=== PATIENT | female | born 1975 | race Hispanic/Latino ===

== ENCOUNTER 2017-05-27 12:43 | Emergency (ER) | payer SELFPAY | END 2017-05-27 13:52 | disposition left against medical advice (07) | LOC: EDH 12:43 | DX: J02.9 Acute pharyngitis, unspecified (principal); Z53.21 Procedure and treatment not carried out due to patient leaving prior to being seen by health care provider ==

== ENCOUNTER 2024-05-20 23:30 | Emergency (ER) | payer BC ==
[~2024-05-20] VITALS: Ht 157.5 cm; Wt 83.0 kg
[2024-05-21 00:04] LABS: RAPID GROUP A STREP negative (NEGATIVE)
[2024-05-21 00:10] LABS: SARS-CoV-2, RNA, NAAT NEGATIVE SARS CoV-2 (NEGATIVE)
[2024-05-21 00:13] LABS: INFLUENZA TYPE A Negative For Type A (NEGATIVE); INFLUENZA TYPE B Negative For Type B (NEGATIVE)
--- NOTE | 2024-05-21 01:27 | ERN ---
ED Note History of Present Illness Stated Complaint: C/O COUGH W/PHLEGM,SORE THROAT, CONGESTION Chief Complaint: Cough Time Seen by MD: 23:32 Time Seen by Midlevel: 23:32 Dictation: The patient is a 48-year-old female with no past medical history who presents to the emergency department with complaints of clear productive cough, sore throat, bilateral ear pain onset two weeks ago. Patient denies any fevers. . Allergies: Coded Allergies: No Known Allergies (Unverified Allergy, Unknown, 05/20/24) Past Medical History Past Medical History: Diabetes-Type II Surgical History: None LMP: Apr 18, 2024 RN Note Reviewed/Agreed w/PFSH: Yes Review of System Dictation Constitutional: Negative for fever,chills, and weight loss Eyes: Negative for injury, pain,redness, and discharge ENT: Negative for injury,pain or swelling positive for sore throat, ear pain Cardiovascular: Negative for chest pain, palpitations, and edema Respiratory: Negative for shortness of breath and wheezing, positive for cough Abdomen/GI: Negative for abdominal pain, nausea, vomiting, diarrhea, and constipation Back: Negative for injury and pain : Negative for injury, bleeding and discharge MS/Extremity: Negative for injury and deformity Skin: Negative for rash, and discoloration Neuro: Negative for headache, weakness, numbness, tingling, and seizure Psych: Negative for suicide ideation, homicidal ideation, and hallucinations Initial Vital Sign VS Vital Signs Date Time Temp Pulse Resp B/P (MAP) Pulse Ox O2 Delivery O2 Flow Rate FiO2 05/20/24 23:34 97.2 62 20 102/67 97 Room Air Physical Exam Dictation Vital Signs reviewed General Appearance: Alert, oriented x 3, no acute distress, well developed, nourished. Head and Face: non-traumatic. Eyes: PERRL, pink conjunctivas, eyelid no trauma, anterior chamber with arcus senilis. Ears: Pinnas intact and no signs of trauma or erythema ear canals clear and no discharge TM no erythema Nose: No discharge, no bleeding. Oropharynx: Mouth normal, tongue pink. pharynx clear,no erythema, tonsils no exudates, no abscesses noted, mucous membrane moist Neck: Supple, non-tender, no thyromegaly, no masses, no JVD, no bruits Breast:Deferred Chest:No tenderness, no crepitus, no paradoxical movement, no retractions Lungs:Clear, well-ventilated, symmetric, no rales mild wheezing, no rhonchi, no stridor, good breath sounds bilaterally Heart: Regular rate, regular rhythm, no murmur, no gallops Vascular: no peripheral edema, Abdomen: Soft, positive bowel sounds, nondistended, no guarding, nontender, no rebound, no masses no hepatomegaly, no splenomegaly, no Hudson's sign, no hernias. Rectal: Deferred Genital: Deferred Neurological: Normal speech, motor function intact, sensory function intact Musculoskeletal: Neck nontender, full range of motion, back nontender, full range of motion, Extremities: nontender, full range of motion Skin: Color pink, dry, no turgor, no rash, no lacerations, no abrasions, no contusions. Lymphatic: Deferred Results (Laboratory/Radiology) Laboratory/Radiology Laboratory Tests Test 05/20/24 23:42 05/21/24 01:30 Influenza Type A Antigen Negative For Type A Influenza Type B Antigen Negative For Type B SARS-CoV-2, RNA, NAAT NEGATIVE SARS CoV-2 Group A Streptococcus Rapid negative (NEGATIVE) Urine HCG, Qualitative NEGATIVE (NEGATIVE) Labs Reviewed?: Yes ED Course ED Course Orders Procedure Category Date Status Time Covid Rna Naat LAB 05/20/24 Complete 23:32 Influenza Type A & B, LAB 05/20/24 Complete Rapid 23:32 Rapid (Group A Strep) LAB 05/20/24 Complete 23:32 Chest 1vw RAD 05/20/24 Taken 23:45 Ipratropium/Albuterol PHA 05/21/24 Complete Neb (Duoneb) 00:00 Guaifenesin-Dm PHA 05/21/24 Complete 200/20mg 10ml 00:00 Methylprednisolone PHA 05/21/24 Complete Succ 125mg (Solu-Medr 00:00 ,Urine Test LAB 05/21/24 Complete 01:22 Current Medications Medications (Trade) Dose Ordered Sig/Danny Route PRN Reason Start Time Stop Time Status Last Admin Dose Admin Albuterol (DUOneb) 1 UDVIAL ONCE ONCE IH 05/21/24 00:00 05/21/24 00:01 DC 05/21/24 01:38 Guaifenesin/ Dextromethorphan (RobiTUSSin DM 200/20MG 10ML) 10 ml ONCE ONCE PO 05/21/24 00:00 05/21/24 00:01 DC 05/21/24 02:41 Methylprednisolone Sodium Succinate (Solu-medROL 125MG) 125 mg ONCE ONCE IM 05/21/24 00:00 05/21/24 00:01 DC 05/21/24 02:41 Vital Signs Date Time Temp Pulse Resp B/P (MAP) Pulse Ox O2 Delivery O2 Flow Rate FiO2 05/21/24 01:38 61 18 05/20/24 23:34 97.2 62 20 102/67 97 Room Air Medical Decision Making MDM The patient is a 48-year-old female with no past medical history who presents to the emergency department with complaints of clear productive cough, sore throat, bilateral ear pain onset two weeks ago. Patient denies any fevers. Serology negative. Chest x-ray showed no acute pulmonary pathology. Patient received nebulizer treatment and wheezing improved. Patient continues in no acute distress. Nonlabored respirations. O2 sats 98% on room air. Will be discharged to follow up with PCP. Differential diagnosis: Upper respiratory infection, pneumonia, COVID-19 infection Need for hospitalization: Patient does not meet criteria for hospitalization. There are no social concerns with this patient. DX & DISP Disposition: Discharge Departure Impression: Primary Impression: Upper respiratory infection Additional Impression: Cough Condition: Stable Scripts Methylprednisolone (Medrol) 4 Mg Tab.ds.pk 4 MG PO AD for 6 Days, #1 PACK Day 1: Take 2 tablets before breakfast,1 tablet after lunch and supper, and 2 tablets at bedtime. Day 2: Take1 tablet before breakfast,1 tablet after lunch,1 tablet after supper, and 2 tablets at bedtime. Day 3: Take 1 tablet before breakfast, 1 tablet after lunch, 1 tablet after supper, and 1 tablet at bedtime. Day 4: Take 1 tablet before breakfast, 1 tablet after lunch, and 1 tablet at bedtime. Day 5: Take1 tablet before breakfast and 1 tablet at bedtime. Day 6: Take 1 tablet before breakfast. Prov: NAYAN SORENSEN 05/21/24 Loratadine (Loratadine) 10 Mg Tablet 1 TAB PO DAILY for allergy symptoms for 30 Days, #30 TAB 0 Refills Prov: NAYAN SORENSEN 05/21/24 Albuterol Sulfate (Ventolin Hfa/Proventil Hfa/Proair Hfa) 90 Mcg Puff 1-2 PUFF IH Q4H PRN for SHORTNESS OF BREATH for 5 Days, #1 INH 0 Refills PHARMACY TO DISPENSE 1 INHALER FOR USE Prov: NAYAN SORENSEN 05/21/24 Additional Instructions: Please follow up with your PCP in 1-2 days. If symptoms worsen please return to ER. FOLLOW-UP WITH PRIMARY CARE PROVIDER IN 1 TO 2 DAYS. TAKE MEDICATIONS DIRECTED HERE IN THE EMERGENCY ROOM. OKAY TO CONTINUE HOME MEDICATIONS UNLESS OTHERWISE DISCUSSED DURING YOUR VISIT IN THE EMERGENCY ROOM TODAY. RETURN TO YOUR NEAREST EMERGENCY ROOM IF SYMPTOMS WORSEN OR IF THERE IS NO IMPROVEMENT. CALL 911 IF YOU NEED IMMEDIATE ASSISTANCE. TAKE TYLENOL OR MOTRIN [id number] NEEDED AND IF NO CONTRAINDICATIONS ARE PRESENT. INCREASE ORAL HYDRATION. A WOUND CULTURE OR URINE CULTURE WAS ORDERED HERE IN THE EMERGENCY ROOM DEPARTMENT PLEASE FOLLOW-UP WITH PRIMARY CARE PROVIDER AND ADVISE THEM TO GET REPEAT PORTS FROM OUR FACILITY. IF YOU HAD ANY ISABEL WRAP/SPLINTS THAT WERE APPLIED HERE, PLEASE DO NOT REMOVE THEM UNTIL YOU SEE YOUR PRIMARY CARE OR SPECIALTY. Referrals: SELF,REFERRAL (PCP) Time of Disposition: 02:43 I have reviewed the case, and I agree with, Diagnosis and Plan NAYAN SORENSEN May 21, 2024 01:27
[2024-05-21 01:38] VITALS: PULSE 61; RESP 18
[2024-05-21] MEDS: IpraTROPium/alBUTERol SULFATE 3 ML SOLUTION IH ONE (01:38)
--- NOTE | 2024-05-21 02:25 | NUR ---
ASSUMED PT CARE
[2024-05-21] MEDS: guaiFENesin-DM 200/20MG 10ML PO ONE (02:41)
[2024-05-21] MEDS: Solu-medROL 125MG VIAL IM ONE (02:41)
[2024-05-21] MEDS ORDERED: METH4TAB3 PO (02:46)
[2024-05-21] MEDS ORDERED: ALBUHFA IH (02:46)
[2024-05-21] MEDS ORDERED: LORA10TA7 PO (02:46)
[2024-05-21 02:56] VITALS: BP 102/67; PULSE 68; RESP 18; TEMP 98.4; O2SAT 99
--- NOTE | 2024-05-21 08:48 | HMCIMG ---
CHEST 1VW REASON: sob COMPARISON: None. FINDINGS: Single view of the chest was obtained. Lungs are clear. Heart size is normal. There is no pulmonary vascular congestion. Mediastinum and bony thorax appear unremarkable. IMPRESSION: 1. Normal single view chest x-ray.
== END 2024-05-21 03:01 | disposition home or self-care (01) ==
LOC: EDH 23:30
DX: J06.9 Acute upper respiratory infection, unspecified (principal); E11.9 Type 2 diabetes mellitus without complications; Z20.822 Contact with and (suspected) exposure to COVID-19
CPT/HCPCS: 99284; 71045; 87635; 87880; 87804 ×2; 81025; 96372; 94640; J2919

== ENCOUNTER 2024-06-19 12:14 | Emergency (ER) | payer BC ==
[~2024-06-19] VITALS: Ht 154.9 cm; Wt 77.1 kg
[~2024-06-19 12:14] MED LIST: ALBUHFA IH; LORA10TA7 PO; METH4TAB3 PO
--- NOTE | 2024-06-19 12:23 | ERN ---
ED Note History of Present Illness Stated Complaint: COUGH,CONGESTION,EAR ACHE,SOB Chief Complaint: Cough Time Seen by MD: 12:15 Dictation: PATIENT IS A 48-YEAR-OLD FEMALE COMING IN TODAY WITH FLU-LIKE SYMPTOMS TO INCLUDE CLEAR RUNNY NOSE, MILD SORE THROAT WITH PAINFUL SWALLOWING DRY COUGH AND FRONTAL HEADACHE FOR THREE DAYS. SHE DENIES NAUSEA VOMITING NO LOSS OF TASTE OR SMELL. SHE ALSO STATES SHE HAS GOT RIGHT EAR PAIN SHE HAS HAD IT FOR THE SAME AMOUNT OF TIME, STATES SHE CALLED HER TO A DOCTOR TODAY WHO SAID SHE COULD NOT GET IN UNTIL TOMORROW. WHEN I ASKED HER IF SHE WAS GOING TO GO SEE YOUR DOCTOR TOMORROW SHE SAID I DO NOT HAVE A CAR. Allergies: Coded Allergies: No Known Allergies (Unverified Allergy, Unknown, 05/20/24) Home Meds Active Scripts Albuterol Sulfate (Ventolin Hfa/Proventil Hfa/Proair Hfa) 90 Mcg Puff, 2 PUFF IH Q4H for WHEEZING, #1 INHALER 0 Refills Prov:VINNY GAONA SHOT PEENING OPERATOR 06/19/24 Benzonatate (Tessalon Perles) 100 Mg Cap, 200 MG PO TID for cough, #60 CAP 0 Refills Prov:VINNY GAONA SHOT PEENING OPERATOR 06/19/24 Methylprednisolone (Medrol) 4 Mg Tab.ds.pk, 1 TAB PO AD for 6 Days, #21 TAB 0 Refills 6 on day 1 then reduce by one tablet daily until gone Prov:VINNY GAONA SHOT PEENING OPERATOR 06/19/24 Methylprednisolone (Medrol) 4 Mg Tab.ds.pk, 4 MG PO AD for 6 Days, #1 PACK Day 1: Take 2 tablets before breakfast,1 tablet after lunch and supper, and 2 tablets at bedtime. Day 2: Take1 tablet before breakfast,1 tablet after lunch,1 tablet after supper, and 2 tablets at bedtime. Day 3: Take 1 tablet before breakfast, 1 tablet after lunch, 1 tablet after supper, and 1 tablet at bedtime. Day 4: Take 1 tablet before breakfast, 1 tablet after lunch, and 1 tablet at bedtime. Day 5: Take1 tablet before breakfast and 1 tablet at bedtime. Day 6: Take 1 tablet before breakfast. Prov:NAYAN SORENSEN 05/21/24 Loratadine (Loratadine) 10 Mg Tablet, 1 TAB PO DAILY for allergy symptoms for 30 Days, #30 TAB 0 Refills Prov:NAYAN SORENSEN ADVANCED PRACTICE PSYCHIATRIC NURSE 05/21/24 Albuterol Sulfate (Ventolin Hfa/Proventil Hfa/Proair Hfa) 90 Mcg Puff, 1-2 PUFF IH Q4H PRN for SHORTNESS OF BREATH for 5 Days, #1 INH 0 Refills PHARMACY TO DISPENSE 1 INHALER FOR USE Prov:NAYAN SORENSEN ADVANCED PRACTICE PSYCHIATRIC NURSE 05/21/24 Past Medical History Past Medical History: Diabetes-Type II Surgical History: None History: Not Applicable RN Note Reviewed/Agreed w/PFSH: Yes Review of System Dictation CONSTITUTIONAL: NEGATIVE EXCEPT FOR HPI FEVER CHILLS HEAD/FACE: NEGATIVE EXCEPT FOR HPI EENT: NEGATIVE EXCEPT FOR HPI CLEAR RHINITIS WITH RIGHT EAR PAIN, SORE THROAT RESPIRATORY: NEGATIVE EXCEPT FOR HPI DRY COUGH GASTROINTESTINAL/ABDOMINAL: NEGATIVE EXCEPT FOR HPI GENITOURINARY: NEGATIVE EXCEPT FOR HPI MUSCULOSKELETAL: NEGATIVE EXCEPT FOR HPI INTEGUMENTARY: NEGATIVE EXCEPT FOR HPI NEUROLOGICAL/PSYCH: NEGATIVE EXCEPT FOR HPI HEMATOLOGIC/LYMPHATIC: NEGATIVE EXCEPT FOR HPI ALL SYSTEMS NEGATIVE, EXCEPT NOTED ABOVE. 13 POINT REVIEW OF SYSTEMS ASSESSED AND ALL NEGATIVE EXCEPT FOR ABOVE. Initial Vital Sign VS Vital Signs Date Time Temp Pulse Resp B/P (MAP) Pulse Ox O2 Delivery O2 Flow Rate FiO2 06/19/24 12:21 101.1 99 18 142/71 95 Room Air 06/19/24 13:14 0 21 Physical Exam Dictation VITAL SIGNS REVIEWED GENERAL APPEARANCE: ALERT, ORIENTED X 3, MILD ACUTE DISTRESS, WELL DEVELOPED, NOURISHED. HEAD AND FACE: NON-TRAUMATIC. EYES: PERRL, PINK CONJUNCTIVAS, EYELID NO TRAUMA, ANTERIOR CHAMBER WITH ARCUS SENILIS. EARS: PINNAS INTACT AND NO SIGNS OF TRAUMA MILD RIGHT OTIC CANAL ERYTHEMA TENDERNESS NO DISCHARGE. TM INTACT BILATERAL NOSE: CLEAR DISCHARGE, NO BLEEDING. OROPHARYNX: MOUTH NORMAL, TONGUE PINK, PHARYNX CLEAR, MODERATE PHARYNGEAL ERYTHEMA, TONSILS NO EXUDATES, NO ABSCESSES NOTED, MUCOUS MEMBRANE MOIST UVULA MIDLINE, VOICE IS CLEAR NECK: SUPPLE, NON-TENDER, NO THYROMEGALY, NO MASSES, NO JVD, NO BRUITS BREAST:DEFERRED CHEST:NO TENDERNESS, NO CREPITUS, NO PARADOXICAL MOVEMENT, NO RETRACTIONS LUNGS:CLEAR, WELL-VENTILATED, SYMMETRIC, NO RALES, NO WHEEZING, NO RHONCHI, NO STRIDOR, GOOD BREATH SOUNDS BILATERALLY NO TACHYPNEA OR RETRACTIONS. DRY COUGH NOTED HEART: REGULAR RATE, REGULAR RHYTHM, NO MURMUR, NO GALLOPS VASCULAR: NO PERIPHERAL EDEMA, ABDOMEN: SOFT, POSITIVE BOWEL SOUNDS, NONDISTENDED, NO GUARDING, NONTENDER, NO REBOUND, NO MASSES NO HEPATOMEGALY, NO SPLENOMEGALY, NO MARTINEZ'S SIGN, NO HERNIAS. RECTAL: DEFERRED GENITAL: DEFERRED NEUROLOGICAL: NORMAL SPEECH, MOTOR FUNCTION INTACT, SENSORY FUNCTION INTACT MUSCULOSKELETAL: NECK NONTENDER, FULL RANGE OF MOTION, BACK NONTENDER, FULL RANGE OF MOTION, EXTREMITIES: NONTENDER, FULL RANGE OF MOTION SKIN: COLOR PINK, DRY, NO TURGOR, NO RASH, NO LACERATIONS, NO ABRASIONS, NO CONTUSIONS. LYMPHATIC: DEFERRED Results (Laboratory/Radiology) Laboratory/Radiology Laboratory Tests Test 06/19/24 12:23 06/19/24 12:35 Influenza Type A Antigen Negative For Type A Influenza Type B Antigen Negative For Type B SARS-CoV-2 Antigen (Rapid) PRESUMPTIVE NEGATIVE Group A Streptococcus Rapid negative (NEGATIVE) Labs Reviewed?: Yes ED Course ED Course Orders Procedure Category Date Status Time Covid19 (Sars Antigen LAB 06/19/24 Complete Rapid) 12:19 Influenza Type A & B, LAB 06/19/24 Complete Rapid 12:19 Acetaminophen 500mg PHA 06/19/24 Complete Tab (Tylenol 500mg T 12:30 Dexamethasone 4mg/Ml PHA 06/19/24 Complete 1ml Vial (Dexametha 12:30 Rapid (Group A Strep) LAB 06/19/24 Complete 12:30 Current Medications Medications (Trade) Dose Ordered Sig/Danny Route PRN Reason Start Time Stop Time Status Last Admin Dose Admin Acetaminophen (TYLenol 500MG TAB) 1,000 mg ONCE ONCE PO 06/19/24 12:30 06/19/24 12:31 DC 06/19/24 13:19 Dexamethasone Sodium Phosphate (dexaMETHasone 4MG/ML 1ML VIAL) 8 mg ONCE ONCE IM 06/19/24 12:30 06/19/24 12:31 DC 06/19/24 13:19 Vital Signs Date Time Temp Pulse Resp B/P (MAP) Pulse Ox O2 Delivery O2 Flow Rate FiO2 06/19/24 13:19 100.8 06/19/24 13:14 100.8 95 16 140/70 98 Room Air* 0 21 06/19/24 12:21 101.1 99 18 142/71 95 Room Air 1307/WORKUP IS NEGATIVE PATIENT STATES SHE FEELS BETTER AFTER TREATMENT. SHE WILL BE DISCHARGED HOME TO FOLLOW UP WITH HER PRIMARY CARE DOCTOR TOMORROW SHE WILL BE TREATED SYMPTOMATICALLY FOR VIRAL URI WITH COUGH AND FEVER. Medical Decision Making MDM MEDICAL DISCHARGE MAKING BASED ON SWABS FOR FLU COVID AND STREP. PATIENT GIVEN DECADRON8 MG FOR PERSISTENT COUGH. SHE WILL BE DISCHARGED HOME WITH MEDROL DOSEPAK, TESSALON, ALBUTEROL INHALER TOLD SEE HER PRIMARY CARE DOCTOR AT [facility] FOR FOLLOW UP DX & DISP Disposition: Discharge Departure Impression: Primary Impression: Viral URI with cough Additional Impression: Fever Condition: Stable Scripts Albuterol Sulfate (Ventolin Hfa/Proventil Hfa/Proair Hfa) 90 Mcg Puff 2 PUFF IH Q4H for WHEEZING, #1 INHALER 0 Refills Prov: VINNY GAONA NP 06/19/24 Benzonatate (Tessalon Perles) 100 Mg Cap 200 MG PO TID for cough, #60 CAP 0 Refills Prov: VINNY GAONA NP 06/19/24 Methylprednisolone (Medrol) 4 Mg Tab.ds.pk 1 TAB PO AD for 6 Days, #21 TAB 0 Refills 6 on day 1 then reduce by one tablet daily until gone Prov: VINNY GAONA NP 06/19/24 Additional Instructions: FOLLOW-UP WITH PRIMARY CARE PROVIDER IN 1 TO 2 DAYS. TAKE MEDICATIONS DIRECTED HERE IN THE EMERGENCY ROOM. OKAY TO CONTINUE HOME MEDICATIONS UNLESS OTHERWISE DISCUSSED DURING YOUR VISIT IN THE EMERGENCY ROOM TODAY. RETURN TO YOUR NEAREST EMERGENCY ROOM IF SYMPTOMS WORSEN OR IF THERE IS NO IMPROVEMENT. CALL 911 IF YOU NEED IMMEDIATE ASSISTANCE. TAKE TYLENOL OR MOTRIN [id number] NEEDED AND IF NO CONTRAINDICATIONS ARE PRESENT. INCREASE ORAL HYDRATION. A WOUND CULTURE OR URINE CULTURE WAS ORDERED HERE IN THE EMERGENCY ROOM DEPARTMENT PLEASE FOLLOW-UP WITH PRIMARY CARE PROVIDER AND ADVISE THEM TO GET REPEAT PORTS FROM OUR FACILITY. IF YOU HAD ANY ISABEL WRAP/SPLINTS THAT WERE APPLIED HERE, PLEASE DO NOT REMOVE THEM UNTIL YOU SEE YOUR PRIMARY CARE OR SPECIALTY. INCREASE YOUR FLUID INTAKE. TAKE MEDROL DOSEPAK DIRECTED UNTIL GONE. TAKE TESSALON PERLES EVERY 8 HOURS NEEDED FOR COUGH. SEE YOUR PRIMARY CARE DOCTOR FOR FOLLOW UP AND MANAGE Referrals: SELF,REFERRAL (PCP) Time of Disposition: 13:10 I have reviewed the case, and I agree with, Diagnosis and Plan VINNY GAONA NP Jun 19, 2024 12:23 PATRICIO CACERES DO Jun 19, 2024 14:55
[2024-06-19 12:50] LABS: COVID19 (SARS ANTIGEN RAPID) PRESUMPTIVE NEGATIVE (NEGATIVE); INFLUENZA TYPE A Negative For Type A (NEGATIVE); INFLUENZA TYPE B Negative For Type B (NEGATIVE)
[2024-06-19] MEDS ORDERED: ALBUHFA IH (13:11)
[2024-06-19] MEDS ORDERED: METH4TAB3 PO (13:11)
[2024-06-19] MEDS ORDERED: BENZ-39 PO (13:11)
[2024-06-19 13:14] VITALS: BP 140/70; PULSE 95; RESP 16; TEMP 100.8; O2SAT 98
[2024-06-19 13:19] VITALS: TEMP 100.8
[2024-06-19] MEDS: acetaMINOPHEN 500 MG TABLET PO ONE (13:19)
[2024-06-19] MEDS: dexaMETHasone SOD PHOSPHATE 4 MG/ML 1ML VIAL IM ONE (13:19)
== END 2024-06-19 13:29 | disposition home or self-care (01) ==
LOC: EDH 12:14
DX: J06.9 Acute upper respiratory infection, unspecified (principal); B97.89 Other viral agents as the cause of diseases classified elsewhere; E11.9 Type 2 diabetes mellitus without complications; Z20.822 Contact with and (suspected) exposure to COVID-19; Z79.899 Other long term (current) drug therapy
CPT/HCPCS: 99284; 87426; 87880; 87804 ×2; 96372; J1100

== ENCOUNTER 2024-11-29 17:53 | Emergency (ER) | payer BC ==
[~2024-11-29] VITALS: Ht 154.9 cm; Wt 83.0 kg
[~2024-11-29 17:53] MED LIST changes: +BENZ-39 PO
--- NOTE | 2024-11-29 18:28 | ERN ---
ED Note History of Present Illness Stated Complaint: SORE THROAT Chief Complaint: Sore Throat Time Seen by MD: 17:54 Time Seen by Midlevel: 17:54 Dictation: The patient is a 49-year-old female with no past medical history who presents to the emergency department with complaints of sore throat onset a week ago. Patient reports that she initially started with a runny nose and multiple sneezing. Reports occasional clear productive cough. Denies any fevers. Allergies: Coded Allergies: No Known Allergies (Unverified Allergy, Unknown, 05/20/24) Home Meds Active Scripts Albuterol Sulfate (Ventolin Hfa/Proventil Hfa/Proair Hfa) 90 Mcg Puff, 2 PUFF IH Q4H for WHEEZING, #1 INHALER 0 Refills Prov:VINNY GAONA DEBT COLLECTION SPECIALIST 06/19/24 Benzonatate (Tessalon Perles) 100 Mg Cap, 200 MG PO TID for cough, #60 CAP 0 Refills Prov:VINNY GAONA DEBT COLLECTION SPECIALIST 06/19/24 Methylprednisolone (Medrol) 4 Mg Tab.ds.pk, 1 TAB PO AD for 6 Days, #21 TAB 0 Refills 6 on day 1 then reduce by one tablet daily until gone Prov:VINNY GAONA DEBT COLLECTION SPECIALIST 06/19/24 Methylprednisolone (Medrol) 4 Mg Tab.ds.pk, 4 MG PO AD for 6 Days, #1 PACK Day 1: Take 2 tablets before breakfast,1 tablet after lunch and supper, and 2 tablets at bedtime. Day 2: Take1 tablet before breakfast,1 tablet after lunch,1 tablet after supper, and 2 tablets at bedtime. Day 3: Take 1 tablet before breakfast, 1 tablet after lunch, 1 tablet after supper, and 1 tablet at bedtime. Day 4: Take 1 tablet before breakfast, 1 tablet after lunch, and 1 tablet at bedtime. Day 5: Take1 tablet before breakfast and 1 tablet at bedtime. Day 6: Take 1 tablet before breakfast. Prov:NAYAN SORENSEN 05/21/24 Loratadine (Loratadine) 10 Mg Tablet, 1 TAB PO DAILY for allergy symptoms for 30 Days, #30 TAB 0 Refills Prov:NAYAN SORENSENP 05/21/24 Albuterol Sulfate (Ventolin Hfa/Proventil Hfa/Proair Hfa) 90 Mcg Puff, 1-2 PUFF IH Q4H PRN for SHORTNESS OF BREATH for 5 Days, #1 INH 0 Refills PHARMACY TO DISPENSE 1 INHALER FOR USE Prov:NAYAN SORENSEN GLUING MACHINE ADJUSTER 05/21/24 Past Medical History Past Medical History: No Pertinent History Additional Past Medical Hx: denies pmhx Surgical History: None History: Not Applicable RN Note Reviewed/Agreed w/PFSH: Yes Review of System Dictation Constitutional: Negative for fever,chills, and weight loss Eyes: Negative for injury, pain,redness, and discharge ENT: Positive for sore throat Cardiovascular: Negative for chest pain, palpitations, and edema Respiratory: Negative for shortness of breath, cough, and wheezing, Abdomen/GI: Negative for abdominal pain, nausea, vomiting, diarrhea, and constipation Back: Negative for injury and pain : Negative for injury, bleeding and discharge MS/Extremity: Negative for injury and deformity Skin: Negative for rash, and discoloration Neuro: Negative for headache, weakness, numbness, tingling, and seizure Psych: Negative for suicide ideation, homicidal ideation, and hallucinations Initial Vital Sign VS Vital Signs Date Time Temp Pulse Resp B/P (MAP) Pulse Ox O2 Delivery O2 Flow Rate FiO2 11/29/24 17:54 98.2 77 16 135/78 100 Room Air 0 11/29/24 17:56 21 Physical Exam Dictation Vital Signs reviewed General Appearance: Alert, oriented x 3, no acute distress, well developed, nourished. Head and Face: non-traumatic. Eyes: PERRL, pink conjunctivas, eyelid no trauma, anterior chamber with arcus senilis. Ears: Pinnas intact and no signs of trauma or erythema ear canals clear and no discharge TM no erythema Nose: No discharge, no bleeding. Oropharynx: Mouth normal, tongue pink. pharynx clear,+ erythema, tonsils + exudates, no abscesses noted, mucous membrane moist Neck: Supple, non-tender, no thyromegaly, no masses, no JVD, no bruits Breast:Deferred Chest:No tenderness, no crepitus, no paradoxical movement, no retractions Lungs:Clear, well-ventilated, symmetric, no rales, no wheezing, no rhonchi, no stridor, good breath sounds bilaterally Heart: Regular rate, regular rhythm, no murmur, no gallops Vascular: no peripheral edema, Abdomen: Soft, positive bowel sounds, nondistended, no guarding, nontender, no rebound, no masses no hepatomegaly, no splenomegaly, no Hudson's sign, no hernias. Rectal: Deferred Genital: Deferred Neurological: Normal speech, motor function intact, sensory function intact Musculoskeletal: Neck nontender, full range of motion, back nontender, full ra nge of motion, Extremities: nontender, full range of motion Skin: Color pink, dry, no turgor, no rash, no lacerations, no abrasions, no contusions. Lymphatic: Deferred Results (Laboratory/Radiology) Laboratory/Radiology Laboratory Tests Test 11/29/24 18:49 Influenza Type A Antigen Negative For Type A Influenza Type B Antigen Negative For Type B SARS-CoV-2, RNA, NAAT NEGATIVE SARS CoV-2 Group A Streptococcus Rapid negative (NEGATIVE) Labs Reviewed?: Yes ED Course ED Course Orders Procedure Category Date Status Time Influenza Type A & B, LAB 11/29/24 Complete Rapid 18:11 Rapid (Group A Strep) LAB 11/29/24 Complete 18:11 Covid Rna Naat LAB 11/29/24 Complete 18:49 Ketorolac 60mg/2ml PHA 11/29/24 Logged (Toradol 60mg/2ml) 19:30 Ceftriaxone 1g Vial PHA 11/29/24 Logged (Rocephine 1g Inj) 19:30 Current Medications Medications (Trade) Dose Ordered Sig/Danny Route PRN Reason Start Time Stop Time Status Last Admin Dose Admin Ceftriaxone Sodium (ROCEphine 1G INJ) 1 gm ONCE ONCE IM 11/29/24 19:30 11/29/24 19:31 UNV Ketorolac Tromethamine (toRADol 60MG/ 2ML) 60 mg ONCE ONCE IM 11/29/24 19:30 11/29/24 19:31 UNV Vital Signs Date Time Temp Pulse Resp B/P (MAP) Pulse Ox O2 Delivery O2 Flow Rate FiO2 11/29/24 17:56 98.2 77 16 135/78 100 Room Air* 0 21 11/29/24 17:54 98.2 77 16 135/78 100 Room Air 0 Medical Decision Making MDM The patient is a 49-year-old female with no past medical history who presents to the emergency department with complaints of sore throat onset a week ago. Patient reports that she initially started with a runny nose and multiple sneezing. Reports occasional clear productive cough. Denies any fevers. Serology was negative. Patient has symptoms consistent with pharyngitis. On physical exam patient is in no acute distress, clear lung sounds, stable vital signs we will discharge to follow up with PCP. Differential diagnosis: Pharyngitis, strep throat, upper respiratory infection Need for hospitalization: Patient does not meet criteria for hospitalization. There are no social concerns with this patient. DX & DISP Disposition: Discharge Departure Impression: Primary Impression: Pharyngitis, acute Condition: Stable Scripts Penicillin V Potassium (Penicillin V Potassium) 500 Mg Tablet 1 TAB PO BID for 10 Days, #20 TAB 0 Refills Prov: NAYAN SORENSEN 11/29/24 Additional Instructions: Please follow up with the primary doctor in 1-2 days. Take your medications as prescribed. If anything worsens please return to ER. FOLLOW-UP WITH PRIMARY CARE PROVIDER IN 1 TO 2 DAYS. TAKE MEDICATIONS DIRECTED HERE IN THE EMERGENCY ROOM. OKAY TO CONTINUE HOME MEDICATIONS UNLESS OTHERWISE DISCUSSED DURING YOUR VISIT IN THE EMERGENCY ROOM TODAY. RETURN TO YOUR NEAREST EMERGENCY ROOM IF SYMPTOMS WORSEN OR IF THERE IS NO IMPROVEMENT. CALL 911 IF YOU NEED IMMEDIATE ASSISTANCE. TAKE TYLENOL [id number] NEEDED AND IF NO CONTRAINDICATIONS ARE PRESENT. INCREASE ORAL HYDRATION. A WOUND CULTURE OR URINE CULTURE WAS ORDERED HERE IN THE EMERGENCY ROOM DEPARTMENT PLEASE FOLLOW-UP WITH PRIMARY CARE PROVIDER AND ADVISE THEM TO GET REPEAT PORTS FROM OUR FACILITY. IF YOU HAD ANY ISABEL WRAP/SPLINTS THAT WERE APPLIED HERE, PLEASE DO NOT REMOVE THEM UNTIL YOU SEE YOUR PRIMARY CARE OR SPECIALTY. Referrals: SELF,REFERRAL (PCP) Time of Disposition: 19:25 I have reviewed the case, and I agree with, Diagnosis and Plan NAYAN SORENSEN Nov 29, 2024 18:28
[2024-11-29 19:04] LABS: RAPID GROUP A STREP negative (NEGATIVE)
[2024-11-29 19:13] LABS: INFLUENZA TYPE A Negative For Type A (NEGATIVE); INFLUENZA TYPE B Negative For Type B (NEGATIVE)
[2024-11-29 19:19] LABS: SARS-CoV-2, RNA, NAAT NEGATIVE SARS CoV-2 (NEGATIVE)
[2024-11-29] MEDS ORDERED: PENI500T2 PO (19:25)
--- NOTE | 2024-11-29 19:48 | NUR ---
TRANSFERED CARE TO [facility] AT THIS TIME
[2024-11-29 19:50] VITALS: BP 132/78; PULSE 75; RESP 16; TEMP 98.2; O2SAT 100
[2024-11-30] MEDS ORDERED: DIPH50 PO (00:41)
== END 2024-11-29 19:52 | disposition home or self-care (01) ==
LOC: EDH 17:53
DX: J02.9 Acute pharyngitis, unspecified (principal); Z20.822 Contact with and (suspected) exposure to COVID-19
CPT/HCPCS: 99284 ×2; 87880; 87804 ×2; 87635; 71045; 96372 ×3; J2919; Q0163; J0696; J1885

== ENCOUNTER 2024-11-29 23:04 | Emergency (ER) | payer BC ==
[~2024-11-29] VITALS: Ht 154.9 cm; Wt 84.4 kg
[~2024-11-29 23:04] MED LIST changes: +PENI500T2 PO
[2024-11-29] MEDS: FAMOTIDINE 20MG TAB PO ONE (23:37)
[2024-11-30] MEDS ORDERED: DIPH50 PO (00:41)
--- NOTE | 2024-11-30 00:42 | ERN ---
ED Note History of Present Illness Stated Complaint: REACTION TO MEDICATION GIVEN HERE EARLIER FOR SORE Chief Complaint: Allergic Reaction Time Seen by MD: 23:06 Time Seen by Midlevel: 23:06 Dictation: The patient is a 49-year-old female with no past medical history who presents to the emergency department with complaints of shortness of breath and abdominal bloating after medication administration today. Patient received Toradol and Rocephin. Denies any rash, or itchiness. Denies any nausea vomiting or diarrhea. Allergies: Coded Allergies: No Known Allergies (Unverified Allergy, Unknown, 05/20/24) Home Meds Active Scripts Penicillin V Potassium (Penicillin V Potassium) 500 Mg Tablet, 1 TAB PO BID for 10 Days, #20 TAB 0 Refills Prov:NAYAN SORENSEN ERGONOMIC SPECIALIST 11/29/24 Albuterol Sulfate (Ventolin Hfa/Proventil Hfa/Proair Hfa) 90 Mcg Puff, 2 PUFF IH Q4H for WHEEZING, #1 INHALER 0 Refills Prov:VINNY GAONA [employer]USSIAN LANGUAGE INSTRUCTOR 06/19/24 Benzonatate (Tessalon Perles) 100 Mg Cap, 200 MG PO TID for cough, #60 CAP 0 Refills Prov:VINNY GAONA [employer]USSI[employer] LANGUAGE INSTRUCTOR 06/19/24 Methylprednisolone (Medrol) 4 Mg Tab.ds.pk, 1 TAB PO AD for 6 Days, #21 TAB 0 Refills 6 on day 1 then reduce by one tablet daily until gone Prov:VINNY GAONA [employer]SI[employer] LANGUAGE IN[employer]CTOR 06/19/24 Methylprednisolone (Medrol) 4 Mg Tab.ds.pk, 4 MG PO AD for 6 Days, #1 PACK Day 1: Take 2 tablets before breakfast,1 tablet after lunch and supper, and 2 tablets at bedtime. Day 2: Take1 tablet before breakfast,1 tablet after lunch,1 tablet after supper, and 2 tablets at bedtime. Day 3: Take 1 tablet before breakfast, 1 tablet after lunch, 1 tablet after supper, and 1 tablet at bedtime. Day 4: Take 1 tablet before breakfast, 1 tablet after lunch, and 1 tablet at bedtime. Day 5: Take1 tablet before breakfast and 1 tablet at bedtime. Day 6: Take 1 tablet before breakfast. Prov:NAYAN SORENSEN ERGONOMIC SPECIALIST 05/21/24 Loratadine (Loratadine) 10 Mg Tablet, 1 TAB PO DAILY for allergy symptoms for 30 Days, #30 TAB 0 Refills Prov:NAYAN SORENSEN ERGONOMIC SPECIALIST 05/21/24 Albuterol Sulfate (Ventolin Hfa/Proventil Hfa/Proair Hfa) 90 Mcg Puff, 1-2 PUFF IH Q4H PRN for SHORTNESS OF BREATH for 5 Days, #1 INH 0 Refills PHARMACY TO DISPENSE 1 INHALER FOR USE Prov:NAYAN SORENSEN ERGONOMIC SPECIALIST 05/21/24 Past Medical History Past Medical History: No Pertinent History Additional Past Medical Hx: denies pmhx Surgical History: History: Not Applicable RN Note Reviewed/Agreed w/PFSH: Yes Review of System Dictation Constitutional: Negative for fever,chills, and weight loss Eyes: Negative for injury, pain,redness, and discharge ENT: Negative for injury,pain or swelling Cardiovascular: Negative for chest pain, palpitations, and edema Respiratory: Negative for cough, and wheezing, positive for shortness of breath Abdomen/GI: Negative for abdominal pain, nausea, vomiting, diarrhea, and constipation Back: Negative for injury and pain : Negative for injury, bleeding and discharge MS/Extremity: Negative for injury and deformity Skin: Negative for rash, and discoloration Neuro: Negative for headache, weakness, numbness, tingling, and seizure Psych: Negative for suicide ideation, homicidal ideation, and hallucinations Initial Vital Sign VS Vital Signs Date Time Temp Pulse Resp B/P (MAP) Pulse Ox O2 Delivery O2 Flow Rate FiO2 11/29/24 23:06 97.9 61 20 136/82 96 Room Air 11/29/24 23:37 0 21 Physical Exam Dictation Vital Signs reviewed General Appearance: Alert, oriented x 3, no acute distress, well developed, nourished. Head and Face: non-traumatic. Eyes: PERRL, pink conjunctivas, eyelid no trauma, anterior chamber with arcus senilis. Ears: Pinnas intact and no signs of trauma or erythema ear canals clear and no discharge TM no erythema Nose: No discharge, no bleeding. Oropharynx: Mouth normal, tongue pink. pharynx clear,no erythema, tonsils no exudates, no abscesses noted, mucous membrane moist Neck: Supple, non-tender, no thyromegaly, no masses, no JVD, no bruits Breast:Deferred Chest:No tenderness, no crepitus, no paradoxical movement, no retractions Lungs:Clear, well-ventilated, symmetric, no rales, no wheezing, no rhonchi, no stridor, good breath sounds bilaterally Heart: Regular rate, regular rhythm, no murmur, no gallops Vascular: no peripheral edema, Abdomen: Soft, positive bowel sounds, nondistended, no guarding, nontender, no rebound, no masses no hepatomegaly, no splenomegaly, no Hudson's sign, no hernias. Rectal: Deferred Genital: Deferred Neurological: Normal speech, motor function intact, sensory function intact Musculoskeletal: Neck nontender, full range of motion, back nontender, full range of motion, Extremities: nontender, full range of motion Skin: Color pink, dry, no turgor, no rash, no lacerations, no abrasions, no contusions. Lymphatic: Deferred Results (Laboratory/Radiology) Labs Reviewed?: Yes ED Course ED Course Orders Procedure Category Date Status Time Diphenhydramine Hcl PHA 11/29/24 Complete (Benadryl Cap) 23:30 Famotidine 20mg Tab PHA 11/29/24 Complete (Pepcid 20mg Tab) 23:30 Methylprednisolone PHA 11/29/24 Complete Succ 125mg (Solu-Medr 23:30 Water For PHA 11/29/24 Complete Injection,Sterile 23:28 Chest 1vw RAD 11/29/24 Taken 23:33 Current Medications Medications (Trade) Dose Ordered Sig/Danny Route PRN Reason Start Time Stop Time Status Last Admin Dose Admin Diphenhydramine HCl (BENAdryl CAP) 25 mg ONCE ONCE PO 11/29/24 23:30 11/29/24 23:31 DC 11/29/24 23:37 Famotidine (Pepcid 20mg Tab) 20 mg ONCE ONCE PO 11/29/24 23:30 11/29/24 23:31 DC 11/29/24 23:37 Methylprednisolone Sodium Succinate (Solu-medROL 125MG) 125 mg ONCE ONCE IM 11/29/24 23:30 11/29/24 23:31 DC 11/29/24 23:37 Sterile Water (Sterile Water, Injection) 10 ml STK-MED ONCE .ROUTE 11/29/24 23:28 11/29/24 23:28 DC Vital Signs Date Time Temp Pulse Resp B/P (MAP) Pulse Ox O2 Delivery O2 Flow Rate FiO2 8/9/25 23:37 98.2 64 18 135/86 96 Room Air* 0 21 11/29/24 23:06 97.9 61 20 136/82 96 Room Air Medical Decision Making MDM The patient is a 49-year-old female with no past medical history who presents to the emergency department with complaints of shortness of breath and abdominal bloating after medication administration today. Patient received Toradol and Rocephin. Denies any rash, or itchiness. Denies any nausea vomiting or diarrhea. X-ray showed no acute consolidation. On physical exam patient is in no acute distress, nontender abdomen to palpation, clear lung sounds, no rash in no swelling. Patient will be discharged to follow up with PCP. Differential diagnosis: Pneumonia, allergic reaction, medication side effect Need for hospitalization: Patient does not meet criteria for hospitalization. There are no social concerns with this patient. DX & DISP Disposition: Discharge Departure Impression: Primary Impression: Adverse reaction to drug Condition: Stable Scripts Diphenhydramine HCl (Benadryl) 50 Mg Cap 50 MG PO TID PRN for ALLERGIC REACTION for 10 Days, #30 CAP 0 Refills Prov: NAYAN SORENSEN 11/30/24 Additional Instructions: If your medications caused him to have itchiness or swelling. Please do not take medications. You can take Benadryl if you get an allergic reaction like itchiness. FOLLOW-UP WITH PRIMARY CARE PROVIDER IN 1 TO 2 DAYS. TAKE MEDICATIONS DIRECTED HERE IN THE EMERGENCY ROOM. OKAY TO CONTINUE HOME MEDICATIONS UNLESS OTHERWISE DISCUSSED DURING YOUR VISIT IN THE EMERGENCY ROOM TODAY. RETURN TO YOUR NEAREST EMERGENCY ROOM IF SYMPTOMS WORSEN OR IF THERE IS NO IMPROVEMENT. CALL 911 IF YOU NEED IMMEDIATE ASSISTANCE. TAKE TYLENOL [id number] NEEDED AND IF NO CONTRAINDICATIONS ARE PRESENT. INCREASE ORAL HYDRATION. A WOUND CULTURE OR URINE CULTURE WAS ORDERED HERE IN THE EMERGENCY ROOM DEPARTMENT PLEASE FOLLOW-UP WITH PRIMARY CARE PROVIDER AND ADVISE THEM TO GET REPEAT PORTS FROM OUR FACILITY. IF YOU HAD ANY ISABEL WRAP/SPLINTS THAT WERE APPLIED HERE, PLEASE DO NOT REMOVE THEM UNTIL YOU SEE YOUR PRIMARY CARE OR SPECIALTY. Referrals: SELF,REFERRAL (PCP) Time of Disposition: 00:40 I have reviewed the case, and I agree with, Diagnosis and Plan NAYAN SORENSEN Nov 30, 2024 00:42
[2024-11-30 01:36] VITALS: BP 126/78; PULSE 67; RESP 18; TEMP 98.6; O2SAT 97
== END 2024-11-30 01:37 | disposition home or self-care (01) ==
LOC: EDH 23:04
DX: R06.02 Shortness of breath (principal); T39.8X5A Adverse effect of other nonopioid analgesics and antipyretics, not elsewhere classified, initial encounter; Z79.899 Other long term (current) drug therapy; Y92.89 Other specified places as the place of occurrence of the external cause
CPT/HCPCS: 99284; 71045; 96372; Q0163; J2919